=== PATIENT | female | born 1970 | race Caucasian/White ===

== ENCOUNTER 2023-11-19 11:50 | Emergency (ER) | payer SELFPAY ==
[2023-11-19] MEDS: Iopamidol 612 MG/ML 100 ML Bottle IVPUSH ONE (12:48)
[2023-11-19] MEDS: Sodium Chloride 0.9% 10 ML Syringe FLUSH ONE (12:49)
[2023-11-19 12:57] LABS: BASOPHILS PERCENT AUTO 0.3 % (0.0-1.0); EOSINOPHILS ABSOLUTE AUTO 0.2 K/mm3 (0.0-0.4); EOSINOPHILS PERCENT AUTO 1.5 % (0.0-6.0); HEMATOCRIT 47.2 % (37.0-47.0); HEMOGLOBIN 16.2 gm/dl (12.0-16.0); IMMATURE GRAN ABSOLUTE AUTO 0.03 K/mm3 (0.00-0.05); IMMATURE GRAN PERCENT AUTO 0.3 % (0.0-0.4); LYMPHOCYTES PERCENT AUTO 18.8 % (24.0-44.0); MEAN CORPUSCULAR HEMOGLOBIN 30.2 pg (28.0-32.0); MEAN CORPUSCULAR HGB CONC 34.3 g/dl (32.0-36.0); MEAN CORPUSCULAR VOLUME 88.1 fl (83.0-99.0); MEAN PLATELET VOLUME 8.8 fl (9.4-12.3); MONOCYTES ABSOLUTE AUTO 0.8 K/mm3 (0.0-0.8); MONOCYTES PERCENT AUTO 7.7 % (0.0-8.0); NEUTROPHILS ABSOLUTE AUTO 7.5 K/mm3 (1.8-7.7); NEUTROPHILS PERCENT AUTO 71.4 % (41.0-71.0); PLATELET COUNT,PLT 290 K/mm3 (150-400); RED BLOOD CELL COUNT 5.36 M/mm3 (4.10-5.30); WHITE BLOOD CELL COUNT,WBC 10.51 K/mm3 (3.9-11.3)
[2023-11-19 13:13] LABS: A/G RATIO 1.4 (1-2); ALBUMIN 4.2 g/dl (3.4-5.0); ANION GAP 13.5 (5-15); BUN/CREATININE RATIO 21.3 (14-18); C-REACTIVE PROTEIN 0.95 mg/dL (<0.30); CALCIUM 9.2 mg/dL (8.5-10.1); CREATININE 0.8 mg/dL (0.55-1.02); EST CRCL DRUG DOSING (CG) 84.99 mL/min; POTASSIUM,K 4.5 mEq/L (3.5-5.1); PROTEIN TOTAL,TP 7.3 g/dl (6.4-8.2)
[2023-11-19 13:15] LABS: LACTIC ACID 0.6 mmol/L (0.4-2.0)
[2023-11-19] MEDS: cefTRIAXone 2 GM in Sodium Chloride 0.9% 100 ML IV ONE (14:18)
[2023-11-19] MEDS: Amoxicillin/Clavulanate K 875-125 MG Tab PO ONE (14:21)
== END 2023-11-19 15:17 | disposition home or self-care (01) ==
LOC: JD.ED 11:50
DX: L03.213 Periorbital cellulitis (principal); K08.9 Disorder of teeth and supporting structures, unspecified; F17.210 Nicotine dependence, cigarettes, uncomplicated
CPT/HCPCS: 36415; 70487; 80053; 83605; 85025; 86140; 96365; 99284; A9270; J0696; J3490; Q9967

== ENCOUNTER 2023-11-20 06:39 | Emergency (ER) | payer SELFPAY | END 2023-11-20 07:37 | disposition home or self-care (01) | LOC: JD.ED 06:39 | DX: K08.89 Other specified disorders of teeth and supporting structures (principal); R22.0 Localized swelling, mass and lump, head; F17.210 Nicotine dependence, cigarettes, uncomplicated | CPT/HCPCS: 99283 ==